=== PATIENT | male | born 1950 | race Caucasian/White ===

== ENCOUNTER 2020-04-12 06:30 | Day surgery (SDC) | payer MEDICARE, OTHER ==
[~2020-04-12] VITALS: Ht 182.9 cm; Wt 89.1 kg
[~2020-04-12 06:30] MED LIST: ALLOPURINOL300 MG PO; ASPIRIN EC81 MG PO; FISH OIL 1,0001 EACH PO; GLUCOTEN CAPLE1 EACH PO; SIMVASTATIN40 MG PO; VITAMIN D32000 UNIT PO
--- NOTE | 2020-04-12 08:17 | NUR ---
PT ALERT, ORIENTED AND HAS HAD PREVIOUS SCOPE. SEEMED TO DEAL WITH PREP APPROPRIATELY, ALL QUESTIONS ASKED ANSWERED. PT'S JULIO C WILL COME AT [place] FOR PT. PT REQUESTED PRAYER, WILL FOLLOW
--- NOTE | 2020-04-12 08:24 | NUR ---
04/12/20 0824 Helga Pan 0817 PT ARRIVED TO PACU VSS. PT REPORTS ABD CRAMPING AND RN ENCOURAGES PT TO PASS GAS. PT ABLE TO PASS SOME GAS/AIR. RN ENCOURAGES DEEP BREATHING AND PLAN OF CARE DISCUSSED.
--- NOTE | 2020-04-12 16:25 | OR ---
[facility] [address] [place], [place] [address] Signed DATE OF OPERATION: 04/12/2020 SURGEON: Jo Appiah MD PREOPERATIVE DIAGNOSES: 1. Family history of colon cancer (mother). 2. Episodic rectal bleeding. 3. Normal colonoscopy in 2013. POSTOPERATIVE DIAGNOSES: 1. Sigmoid diverticulosis. 2. Diminutive polyp of the rectosigmoid (excised). 3. Edematous changes of ileum. PROCEDURE: Total colonoscopy to cecum with biopsy of ileum and diminutive polyps of rectosigmoid. ANESTHESIA: Intravenous sedation, fentanyl 100 mcg and Versed 6 mg. INDICATIONS: This 69-year-old white man is a patient of Janelle Riojas PA-C. He underwent colonoscopy by id in 2012, which was negative. He has family history of colon cancer in his mother. He has no symptoms other than occasional rectal bleeding, which he attributes to hemorrhoids. He is admitted to undergo colonoscopy, understands the risks of bleeding, infection, perforation. FINDINGS: The prep was excellent. Complete colonoscopy was undertaken to the cecum without question. The ileocecal valve and appendiceal orifice were well identified. Mucosa of the ileum showed edema, but no ulcerations. The remaining colon was normal except for diverticular change of the sigmoid and diminutive polyps of the rectosigmoid, which were excised. Internal hemorrhoids were identified. DESCRIPTION OF PROCEDURE: The patient was brought to the endoscopy suite and placed in lateral decubitus position. Given intravenous sedation to the point of slurred speech and nystagmus. Digital rectal examination was normal. Olympus video colonoscope was passed into the rectum and manipulated throughout the Electronically Signed By: JO APPIAH MD 04/12/20 1625 PATIENT NAME: MARAL SAUCEDA OPERATIVE REPORT DATE OF : 52 REPORT #: [id number] PHYSICIAN: JO APPIAH MD PCP: JANELLE RIOJAS PA-C REPORT IS CONFIDENTIAL AND NOT TO BE RELEASED WITHOUT AUTHORIZATION [facility] [address] [place], [place] [address] Signed colon noting diverticular change of the sigmoid. Scope was ultimately advanced to the cecum. The ileocecal valve and appendiceal orifice were normal. The ileum was intubated without problem. The scope passed well into it showing edematous changes, but no sign of ulceration. Biopsies were obtained. The scope was withdrawn. Careful withdrawal of scope throughout showed no sign of abnormality into the sigmoid, where diverticula were once again noted. There were diminutive polyps of the rectosigmoid, which were biopsied. Narrow band imaging showed them to be quite small. Internal hemorrhoids were noted of the rectum. The scope was removed. The patient was taken to the recovery room in good condition. CONCLUDING DIAGNOSES: 1. Diverticulosis. 2. Diminutive polyps, sigmoid (excised) and ileum with mild edema. PLAN: We will certainly check the pathology report and proceed accordingly. Repeat colonoscopy at minimum should be five years due to family history. We would recommend high-fiber diet. If recurrent bleeding, consider for hemorrhoidal banding in the office. MD TATUM Bee/RADHA /[id number] cc: Janelle Riojas PA-C Copies: JANELLE RIOJAS PA-C ~ Electronically Signed By: JO APPIAH MD 04/12/20 1625 PATIENT NAME: MARAL SAUCEDA OPERATIVE REPORT DATE OF : 52 REPORT #: [id number] PHYSICIAN: JO APPIAH MD PCP: JANELLE RIOJAS PA-C REPORT IS CONFIDENTIAL AND NOT TO BE RELEASED WITHOUT AUTHORIZATION
--- NOTE | 2020-04-13 16:52 | PATH ---
[facility] [address] [place], [place] [address] Signed SPECIMEN(S): A TERMINAL ILEUM SPECIMEN(S): B SIGMOID POLYP SPECIMEN SOURCE: A. TERMINAL ILEUM B. SIGMOID POLYP CLINICAL HISTORY: Hemorrhoids, family history of colon CA; screening colonoscopy. MICROSCOPIC DESCRIPTION: Histologic sections of all submitted blocks are examined by light microscopy. These findings, together with the gross examination, support the pathologic diagnosis. FINAL PATHOLOGIC DIAGNOSIS: A. Terminal ileum, biopsy: - Ileal mucosa with no histopathologic abnormality. - Negative for active inflammation or granulomata. - Negative for dysplasia or malignancy. B. Colon, sigmoid, polyp, polypectomy: - Fragments of edematous colonic mucosa. - Negative for dysplasia or malignancy. NAL:cml:C2NR GROSS DESCRIPTION: Two specimens are received in two containers, labeled "RW." A. The specimen, labeled "RW, terminal ileum biopsy," is received in formalin and consists of one sanchez soft tissue fragment that measures 0.2 cm in greatest dimension. The specimen is entirely submitted in cassette (A1). B. The specimen, labeled "RW, sigmoid colon polyp," is received in formalin and consists of two sanchez soft tissue fragments that measure 0.2-0.4 cm in greatest dimension. The specimen is entirely submitted in cassette (B1). JS (under the direct supervision of a pathologist) The Gross Description was prepared using a voice recognition system. The report was reviewed for accuracy; however, sound-alike word errors, addition and/or deletions may occur. If there is any question about this report, please contact Client Services. PERFORMING LABORATORY: PATIENT NAME: MARAL SAUCEDA PATHOLOGY DATE OF : 52 REPORT #: [id number] PHYSICIAN: SEBASTIAN NETTLES PCP: GURMEET ELIZONDO PA-C REPORT IS CONFIDENTIAL AND NOT TO BE RELEASED WITHOUT AUTHORIZATION [facility] [address] [place] [address] Signed The technical component was [place] [address] (Production Gear Cutter: Salome Collado MD; CLIA# [id number]). Professional interpretation was performed by [employer] [facility], [address] [address] (CLIA# [id number]). Diagnostician: Wanda Singh MD Pathologist Electronically Signed 04/13/2020 Copies: ~ PATIENT NAME: MARAL SAUCEDA PATHOLOGY DATE OF : 52 REPORT #: [id number] PHYSICIAN: SEBASTIAN NETTLES PCP: GURMEET ELIZONDO PA-C REPORT IS CONFIDENTIAL AND NOT TO BE RELEASED WITHOUT AUTHORIZATION
== END 2020-04-12 09:00 | disposition home or self-care (01) ==
LOC: DS 06:30 → OPS 06:30 → DS 06:45 → OPS 09:00
PROVIDERS: ATTEND Surgery
PROC: 0DBN8ZX Excision of Sigmoid Colon, Via Natural or Artificial Opening Endoscopic, Diagnostic (ICD-10-PCS; 2020-04-12)
PROC: 0DBB8ZX Excision of Ileum, Via Natural or Artificial Opening Endoscopic, Diagnostic (ICD-10-PCS; principal; 2020-04-12 06:45)
DX: K62.5 Hemorrhage of anus and rectum (principal); K63.89 Other specified diseases of intestine; K57.30 Diverticulosis of large intestine without perforation or abscess without bleeding; K64.8 Other hemorrhoids; E78.5 Hyperlipidemia, unspecified; Z80.0 Family history of malignant neoplasm of digestive organs; Z79.84 Long term (current) use of oral hypoglycemic drugs; Z79.899 Other long term (current) drug therapy; Z87.891 Personal history of nicotine dependence; Z86.010 Personal history of colon polyps
CPT/HCPCS: 99153; G0500; J2250; J3010; J7121